=== PATIENT | female | born 1960 | race Caucasian/White ===

== ENCOUNTER 2022-05-15 08:20 | Emergency (ER) | payer MEDICARE, MEDICAID, SELFPAY ==
--- NOTE | 2022-05-15 08:37 | ED.CPR ---
HPI - CPR General Chief Complaint: Cardiac Arrest/CPR Stated Complaint: CARDIAC ARREST Time Seen by Provider: 05/15/22 08:37 Source: EMS Mode of arrival: EMS History of Present Illness HPI narrative: 61-year-old female with a past medical history of cardiac problems presents to the emergency department today in cardiopulmonary arrest. EMS was called and responded to the patient's home where she was found down. Time from phone call to arrival was proximally 6-8 minutes. Upon their arrival, the patient's vital signs were taken and the patient was noted to be asystolic and apneic. pattern puncher showed ventricular tachycardia, the patient was shocked multiple times prior to arrival. CPR was begun with the Julio machine. Paramedics continued ACLS protocol until arrival at the hospital approximately 50-55 minutes after the initial call. MD complaint: found unresponsive Onset (ago): minute(s) (55) Place: home AED applied by bystander/legal office administrator: Yes Shock advised: Yes Number of shocks delivered: 3 Downtime before ACLS arrival (mins): 8 Initial findings in the field: unresponsive, no pulse and VTACH/VFIB ROSC in the field: No Associated injuries: No Known history of: CAD Treatments prior to arrival: BMV Related Data Allergies Allergy/AdvReac Type Severity Reaction Status Date / Time No Known Allergies Allergy Unverified 04/21/20 19:22 Review of Systems Review of Systems: HPI, review of systems, and physical exam may be limited secondary to the patient's critical illness Yes Unobtainable due to mental condition and Unobtainable due to mental status PMFSH Past Medical History Source: unable to obtain and nursing notes reviewed Social History Social History Advance Directives: No Advance Directives Information Provided: No Physical Exam Const: Nutritional Appearance: obese Orientation/consciousness: Other orientation findings (Unresponsive) HEENT: Head: Yes normal to inspection and Yes No palpable skull fracture present Eyes: Sclerae: sclerae normal Pupils: Pupils not reactive Neck: Neck: Yes normal visual inspection Chest: Chest palpation & inspection: normal inspection of the chest Resp: Other: No spontaneous respirations Cardio: Other: No cardiac activity GI: Inspection: Yes obesity Back/Spine/Pelvis: Thoracic/Lumbar Spine: thoracic and lumbar spine normal to inspection Skin: General skin exam: no rashes or lesions noted, no mottling and no petechiae Neuro: Other: Unresponsive Extrem: General: Yes normal to inspection Course Course Course Narrative: The case and prognosis was discussed with the family. They understand the gravity of the situation MDM - Cardiac Arrest/CPR MDM Narrative Medical decision making narrative: Upon arrival, CPR was continued using Julio machine. The patient was connected to the cardiac monitors which showed continued asystole. The patient did receive 1 mg of IV epinephrine, with continued CPR. After 3 minutes there was a pulse check which did not show any pulses. Bedside ultrasound confirmed no cardiac activity. At that time, CPR and ventilation were discontinued. Time of pronouncement 8:32 a.m. Differential Diagnosis Differential diagnosis: Likely acute myocardial infarction, cardiac arrest and sudden cardiac Critical Care Time Critical Care Time Critical Care Time: Yes Total Critical Care Time: 10 Attestation: The patient arrived in cardiopulmonary arrest. Critical care time included medical decision making, interpretation of ultrasound findings, as well as interpretation of director of brand marketing data. Discussions with pre-hospital providers. Discussions with director biomedical engineering. Discharge Plan Discharge Clinical Impression: Cardiac arrest Patient Disposition: Interventions: Organ Donor Nursing Doc/Post Mortem care Last Done: 05/15/22 11:49 Discharge Date/Time: 05/15/22 11:50 Date/Time: 05/15/22 08:32
--- NOTE | 2022-05-15 09:37 | PC.NURSE ---
INSOLE AND OUTSOLE PREPARER HAS DECLINED THE CASE
--- NOTE | 2022-05-15 09:44 | PC.NURSE ---
CASE #[id number] [facility] WAS CALLED, AWAITING RETURN PHONE CALL.
--- NOTE | 2022-05-15 10:28 | PC.NURSE ---
[facility] accepted
== END 2022-05-15 11:50 | disposition expired ==
PROVIDERS: Emergency Provider Emergency Medicine
DX: I46.9 Cardiac arrest, cause unspecified (principal)
CPT/HCPCS: 96374; 99281; 99284; J0171